=== PATIENT | female | born 1990 | race Two or more races ===

== ENCOUNTER 2022-07-01 19:01 | Outpatient (CLI) | payer OTHER ==
[~2022-07-01] VITALS: Ht 165.1 cm; Wt 111.2 kg
[2022-07-01 19:20] VITALS: BP 144/76
[2022-07-01] MEDS ORDERED: VITAD400CA FT (19:24)
[2022-07-01] MEDS ORDERED: ZYRTTAB8 PO (19:24)
[2022-07-01] MEDS ORDERED: CALC500C16 PO (19:24)
[2022-07-01] MEDS ORDERED: GNP250TA9 PO (19:24)
[2022-07-01] MEDS ORDERED: PRENTAB9 PO (19:24)
[2022-07-01] MEDS ORDERED: ZOLO50TA PO (19:24)
[2022-07-01] MEDS ORDERED: ZINC220CA PO (19:24)
[2022-07-01 19:30] VITALS: BP 117/66
[2022-07-01 19:40] LABS: HEMATOCRIT 34.1 % (36.0-47.0); HEMOGLOBIN 11.2 g/dl (12.0-15.5); MEAN CORPUSCULAR HEMOGLOBIN 30.8 pg (27.0-33.0); MEAN CORPUSCULAR HGB CONC 32.8 g/dl (32.0-36.5); MEAN CORPUSCULAR VOLUME 93.7 fl (80.0-96.0); PLATELET COUNT, AUTOMATED 262 10^3/uL (150-450); RED BLOOD COUNT 3.64 10^6/uL (4.00-5.40); WHITE BLOOD COUNT 10.9 10^3/uL (4.0-10.0)
[2022-07-01 19:51] LABS: INR 0.92; PROTHROMBIN TIME 12.6 SECONDS (12.5-14.5)
[2022-07-01 19:52] LABS: PARTIAL THROMBOPLASTIN TIME 24.9 SECONDS (24.8-34.2)
[2022-07-01 20:20] VITALS: BP 114/57
== END 2022-07-01 21:14 | disposition left against medical advice (07) ==
LOC: M LDO 19:01
PROVIDERS: ATTEND Obstetrics & Gynecology
DX: O9A.213 Injury, poisoning and certain other consequences of external causes complicating pregnancy, third trimester (principal); T14.8XXA Other injury of unspecified body region, initial encounter; V43.52XA Car driver injured in collision with other type car in traffic accident, initial encounter; Z3A.30 30 weeks gestation of pregnancy
CPT/HCPCS: 36415; 59025; 76811; 76820; 85027; 85384; 85610; 85730; G0463

== ENCOUNTER 2022-08-30 12:02 | Inpatient (IN) | payer OTHER ==
[~2022-08-30] VITALS: Ht 165.1 cm; Wt 116.8 kg
[2022-08-30] VITALS (20 sets, daily range): BP systolic 108–145; BP diastolic 58–89
[~2022-08-30 12:02] MED LIST: CALC500C16 PO; GNP250TA9 PO; PRENTAB9 PO; VITAD400CA FT; ZINC220CA PO; ZOLO50TA PO; ZYRTTAB8 PO
[2022-08-30] MEDS ORDERED: HOME MED LIST COMPLETE! XX SCH (12:35)
[2022-08-30] MEDS ORDERED: LACTATED RINGER'S 1000 ML IV STA (13:49)
[2022-08-30] MEDS ORDERED: OXYTOCIN DRIP 30 UNITS in IV 1 EA IV PRN ×4 (13:50)
[2022-08-30] MEDS ORDERED: LIDOCAINE 1% MDV 20ML VIAL INFIL PRN (13:50)
[2022-08-30] MEDS ORDERED: miSOPROStol 50MCG 1/2 TABLET SL ONE (13:50)
[2022-08-30] MEDS ORDERED: LR 1,000 ML IV SCH ×2 (13:50→23:20)
[2022-08-30] MEDS ORDERED: TRANEXAMIC ACID INJection 1,000 MG in NS 100 ML IV PRN (13:50)
[2022-08-30] MEDS ORDERED: METHYLERGONOVINE MALEATE 0.2 MG/ML VIAL IM PRN (13:50)
[2022-08-30] MEDS ORDERED: CARBOPROST TROMETHAMINE 250 MCG/ML AMP IM PRN (13:50)
[2022-08-30 14:42] LABS: HEMATOCRIT 32.1 % (36.0-47.0); HEMOGLOBIN 10.9 g/dl (12.0-15.5); MEAN CORPUSCULAR HEMOGLOBIN 31.4 pg (27.0-33.0); MEAN CORPUSCULAR VOLUME 92.5 fl (80.0-96.0); PLATELET COUNT, AUTOMATED 261 10^3/uL (150-450); RED BLOOD COUNT 3.47 10^6/uL (4.00-5.40); WHITE BLOOD COUNT 11.2 10^3/uL (4.0-10.0)
[2022-08-30] MEDS: SERTRALINE HCL 50 MG TAB PO SCH (15:16)
[2022-08-30] MEDS ORDERED: miSOPROStol 50MCG 1/2 TABLET PO SCH (16:40)
[2022-08-30] MEDS ORDERED: ONDANSETRON 4MG 2ML VIAL IV PRN (21:30)
[2022-08-30] MEDS ORDERED: FENTANYL/ROPIVACAINE/NACL BAG 100 ML EPIDURAL SCH (21:30)
[2022-08-30] MEDS ORDERED: EPIDURAL/PCA KEYS XX PRN (21:30)
[2022-08-30] MEDS ORDERED: NALOXONE INJ 0.4MG/1ML VIAL IV PRN (21:30)
[2022-08-30] MEDS ORDERED: diphenhydrAMINE 50MG/ML VIAL IV PRN (21:30)
[2022-08-30] MEDS ORDERED: LR 500 ML IV PRN (21:30)
[2022-08-30] MEDS ORDERED: ePHEDrine SULFATE 25 MG/5 ML(5MG/ML) SYRINGE IVP PRN (21:30)
[2022-08-30] MEDS ORDERED: FENTANYL 2MCG/ML ROPIVACAINE 0.2% IN 0.9% NACL 100ML IVBAG As Ordered ONE (21:32)
[2022-08-30] MEDS ORDERED: OXYTOCIN DRIP 30 UNITS in IV 1 EA IV SCH (23:20)
[2022-08-31] VITALS (13 sets, daily range): BP systolic 100–142; BP diastolic 55–88
[2022-08-31] MEDS ORDERED: ONDANSETRON 4MG 2ML VIAL IV PRN (02:45)
[2022-08-31] MEDS ORDERED: IBUPROFEN 600MG TAB PO PRN (02:45)
[2022-08-31] MEDS ORDERED: RHOGAM 300MCG (1500IU) INJ IM SCH (02:45)
[2022-08-31] MEDS ORDERED: ACETAMINOPHEN TAB 650MG DOSE (2X325MG) PO PRN (02:45)
[2022-08-31] MEDS ORDERED: OXYTOCIN DRIP 30 UNITS in IV 1 EA IV SCH ×4 (02:45)
[2022-08-31] MEDS ORDERED: SODIUM CHLORIDE 0.9% 1000ML IV PRN (02:45)
[2022-08-31] MEDS ORDERED: DIBUCAINE 1% OINTMENT 30GM TOP PRN (02:45)
[2022-08-31] MEDS ORDERED: METHYLERGONOVINE MALEATE 0.2 MG TAB PO PRN (02:45)
[2022-08-31] MEDS ORDERED: DOCUSATE SODIUM 100MG CAPSULE PO PRN (02:45)
[2022-08-31] MEDS ORDERED: diphenhydrAMINE 50MG/ML VIAL As Ordered ONE (03:46)
[2022-08-31] MEDS ORDERED: SERTRALINE HCL 50 MG TAB PO SCH (09:00)
[2022-08-31] MEDS ORDERED: PRENATAL VITAMINS CHEWABLE TABLET PO SCH (09:00)
[2022-08-31] MEDS: ZINC SULFATE 220 MG CAP PO SCH ×2 (09:00→21:37)
[2022-08-31] MEDS: SERTRALINE HCL 50 MG TAB PO SCH (09:36)
[2022-08-31] MEDS: PRENATAL VITAMINS CHEWABLE TABLET PO SCH (09:36)
[2022-08-31] MEDS: ACETAMINOPHEN 500 MG TAB PO PRN ×2 (09:36→22:20)
[2022-08-31] MEDS ORDERED: MOM 30ML SUSPENSION UDC PO PRN (12:05)
[2022-08-31] MEDS: IBUPROFEN 800 MG TAB PO PRN (14:57)
[2022-09-01] MEDS ORDERED: COLA100C5 PO (05:03)
[2022-09-01] MEDS ORDERED: SERT50TA29 PO (05:03)
[2022-09-01] MEDS ORDERED: IBUP80TA PO (05:03)
[2022-09-01] MEDS ORDERED: ACET-683 PO (05:03)
[2022-09-01 06:00] VITALS: BP 109/68
[2022-09-01] MEDS: IBUPROFEN 800 MG TAB PO PRN (07:33)
[2022-09-01] MEDS: SERTRALINE HCL 50 MG TAB PO SCH (09:18)
[2022-09-01] MEDS: PRENATAL VITAMINS CHEWABLE TABLET PO SCH (09:18)
[2022-09-01] MEDS: ZINC SULFATE 220 MG CAP PO SCH (09:18)
[2022-09-02] MEDS ORDERED: MEASLES,MUMPS,RUBELLA VACCINE INJ (MMR-II) SC.IMMUN ONE (09:00)
== END 2022-09-01 11:20 | disposition home or self-care (01) | DRG 807 ==
LOC: M LDO 12:02 → M LDI 13:34 → M OBS 08-31 04:41
PROVIDERS: ADMIT Advanced Practice Midwife; ATTEND Obstetrics & Gynecology
PROC: 3E0P7GC Introduction of Other Therapeutic Substance into Female Reproductive, Via Natural or Artificial Opening (ICD-10-PCS; 2022-08-30)
PROC: 10E0XZZ Delivery of Products of Conception, External Approach (ICD-10-PCS; principal; 2022-08-31)
PROC: 0HB9XZZ Excision of Perineum Skin, External Approach (ICD-10-PCS; 2022-08-31)
DX: O42.02 Full-term premature rupture of membranes, onset of labor within 24 hours of rupture (principal); Z37.0 Single live birth; Z3A.39 39 weeks gestation of pregnancy; O99.214 Obesity complicating childbirth; O99.344 Other mental disorders complicating childbirth; F32.A Depression, unspecified; Z86.16 Personal history of COVID-19

== ENCOUNTER → 2024-11-27 | Outpatient (REF) | payer OTHER ==
[~2024-11-27] MED LIST changes: +ACET-683 PO; +COLA100C5 PO; +IBUP80TA PO; +SERT50TA29 PO
== END ==
LOC: M LAB REF 08:55
PROVIDERS: ATTEND Student in an Organized Health Care Education/Training Program
DX: R30.0 Dysuria (principal)

== ENCOUNTER → 2025-05-08 | Outpatient (REF) | payer OTHER | LOC: M LAB REF 17:52 | PROVIDERS: ATTEND Registered Nurse | DX: N39.0 Urinary tract infection, site not specified (principal) ==